=== PATIENT | male | born 1940 | race Caucasian/White ===

== ENCOUNTER → 2017-01-27 | Outpatient (CLI) | payer MEDICARE ==
[~2017-01-27] MED LIST: CHILDREN'S ASPI81 MG PO; ISOSORBIDE DINI30 MG PO; LEVAQUIN500 MG PO; METOPROLOL TART50 MG PO; OMEPRAZOLE20 M1 PO; PLAVIX 75 MG TA75 MG PO; PRAVACHOL40 MG PO; PULMICORT0.5 MG/21 INH; SPIRIVA RESPIMAT4 GM INH; TYLENOL W/CODEIN1 E1 PO; ZESTRIL5 MG PO
== END ==
LOC: HEART 5 10:46
DX: I25.5 Ischemic cardiomyopathy (principal); I49.3 Ventricular premature depolarization
CPT/HCPCS: 93306

== ENCOUNTER → 2020-09-16 | Day surgery (SDC) | payer MEDICARE ==
[~2020-09-16] MED LIST changes: +BACTRIM DS TAB1 EACH PO; +CIPRO500 MG PO; +ELIQUIS5 MG PO; +FLAGYL500 MG PO; +HYDROCODON-ACE1 EAC4 PO; +ISOSORBIDE MONO30 MG PO; +LANTUS SOL100 UNIT/1 SQ; +METFORMIN HCL500 M2 PO; +NITROSTAT0.4 MG SL; +PREDNISONE 20 M20 MG PO; +PROTONIX40 MG PO; +TOPROL XL25 MG PO; +TRELEGY ELLIPT1 EACH INH; +URSODIOL300 MG PO
== END | disposition home or self-care (01) ==
LOC: OR 07:27
DX: Z12.11 Encounter for screening for malignant neoplasm of colon (principal); D12.3 Benign neoplasm of transverse colon; K63.5 Polyp of colon; K57.30 Diverticulosis of large intestine without perforation or abscess without bleeding; K57.32 Diverticulitis of large intestine without perforation or abscess without bleeding; K64.0 First degree hemorrhoids; K64.1 Second degree hemorrhoids; C25.9 Malignant neoplasm of pancreas, unspecified; I10 Essential (primary) hypertension; J44.9 Chronic obstructive pulmonary disease, unspecified; R94.8 Abnormal results of function studies of other organs and systems; E78.00 Pure hypercholesterolemia, unspecified; E11.9 Type 2 diabetes mellitus without complications; K21.9 Gastro-esophageal reflux disease without esophagitis; I49.5 Sick sinus syndrome; E78.5 Hyperlipidemia, unspecified; I25.10 Atherosclerotic heart disease of native coronary artery without angina pectoris; I48.91 Unspecified atrial fibrillation; I25.2 Old myocardial infarction; E66.3 Overweight; Z68.25 Body mass index [BMI] 25.0-25.9, adult; Z95.0 Presence of cardiac pacemaker; Z87.891 Personal history of nicotine dependence; Z88.1 Allergy status to other antibiotic agents; Z88.0 Allergy status to penicillin; Z86.16 Personal history of COVID-19; Z86.711 Personal history of pulmonary embolism; Z79.01 Long term (current) use of anticoagulants; Z85.828 Personal history of other malignant neoplasm of skin; Z98.890 Other specified postprocedural states; Z79.4 Long term (current) use of insulin; Z95.5 Presence of coronary angioplasty implant and graft; Z79.2 Long term (current) use of antibiotics; Z79.899 Other long term (current) drug therapy; Z79.52 Long term (current) use of systemic steroids
CPT/HCPCS: 82962; J2704; J7040

== ENCOUNTER → 2020-10-06 | Day surgery (SDC) | payer MEDICARE | END | disposition home or self-care (01) | LOC: OR 06:23 | DX: Z45.2 Encounter for adjustment and management of vascular access device (principal); C25.9 Malignant neoplasm of pancreas, unspecified; I25.119 Atherosclerotic heart disease of native coronary artery with unspecified angina pectoris; I11.0 Hypertensive heart disease with heart failure; I50.22 Chronic systolic (congestive) heart failure; E78.5 Hyperlipidemia, unspecified; I25.2 Old myocardial infarction; I25.5 Ischemic cardiomyopathy; I73.9 Peripheral vascular disease, unspecified; J43.9 Emphysema, unspecified; Z98.61 Coronary angioplasty status; Z87.891 Personal history of nicotine dependence; Z88.1 Allergy status to other antibiotic agents; Z79.82 Long term (current) use of aspirin; Z79.899 Other long term (current) drug therapy; Z82.49 Family history of ischemic heart disease and other diseases of the circulatory system; Z80.9 Family history of malignant neoplasm, unspecified; Z20.822 Contact with and (suspected) exposure to COVID-19 | CPT/HCPCS: 71045; 77001; 82962; C1769; C1788; J1642; J2001; J2405; J2704; J3010; J7040; J7120 ==

== ENCOUNTER → 2021-03-13 | Outpatient (CLI) | payer MEDICARE | LOC: CT 10:00 | DX: C25.0 Malignant neoplasm of head of pancreas (principal); K86.89 Other specified diseases of pancreas; R30.0 Dysuria; Z79.899 Other long term (current) drug therapy | CPT/HCPCS: Q9967 ==

== ENCOUNTER → 2021-04-06 | Outpatient (CLI) | payer MEDICARE | LOC: CT 09:30 | DX: C25.0 Malignant neoplasm of head of pancreas (principal) | CPT/HCPCS: 70470; Q9967 ==

== ENCOUNTER → 2021-07-14 | Outpatient (CLI) | payer MEDICARE | LOC: CT 10:16 | DX: C25.0 Malignant neoplasm of head of pancreas (principal); K86.89 Other specified diseases of pancreas; R30.0 Dysuria; Z79.899 Other long term (current) drug therapy | CPT/HCPCS: Q9967 ==

== ENCOUNTER → 2021-10-12 | Outpatient (CLI) | payer MEDICARE ==
[2021-10-12 12:59] LABS: HEMOGLOBIN 12.4 gm/dl (14.0-17.5); RED BLOOD COUNT 4.24 M/UL (4.20-5.50); WHITE BLOOD COUNT 8.8 K/UL (4.5-11.0)
[2021-10-12 13:30] LABS: BUN/CREATININE RATIO 25 (0-10)
== END ==
LOC: CT 12:16
PROVIDERS: Internal Medicine Hematology & Oncology
DX: K86.89 Other specified diseases of pancreas (principal); C25.0 Malignant neoplasm of head of pancreas; R30.0 Dysuria; Z79.899 Other long term (current) drug therapy
CPT/HCPCS: 36415; 71260; 80053; 85027; 86301; Q9965

== ENCOUNTER 2021-11-18 10:04 | Emergency (ER) | payer MEDICARE | END 2021-11-18 13:45 | disposition home or self-care (01) | LOC: ER1 10:04 | DX: S09.90XA Unspecified injury of head, initial encounter (principal); M25.552 Pain in left hip; I48.91 Unspecified atrial fibrillation; J44.9 Chronic obstructive pulmonary disease, unspecified; E11.9 Type 2 diabetes mellitus without complications; W01.0XXA Fall on same level from slipping, tripping and stumbling without subsequent striking against object, initial encounter | CPT/HCPCS: 70450; 73502; 73700; 99284 ==

== ENCOUNTER 2021-12-10 12:27 | Inpatient (IN) | payer MEDICARE ==
[~2021-12-10] VITALS: Ht 188 cm; Wt 90.1 kg
[~2021-12-10 12:27] MED LIST changes: -URSODIOL300 MG PO
[2021-12-10 13:28] LABS: HEMOGLOBIN 10.8 gm/dl (14.0-17.5); RED BLOOD COUNT 3.66 M/UL (4.20-5.50); WHITE BLOOD COUNT 7.9 K/UL (4.5-11.0)
[2021-12-10 14:38] LABS: BUN/CREATININE RATIO 25 (0-10)
[2021-12-10] MEDS ORDERED: VITAMIN C500 M4 PO (19:18)
[2021-12-10] MEDS ORDERED: IRON325 M1 PO (19:26)
[2021-12-10] MEDS ORDERED: LASIX80 MG PO (19:27)
[2021-12-10] MEDS ORDERED: SERTRALINE HCL50 MG PO (19:27)
[2021-12-10] MEDS ORDERED: SOTALOL AF120 MG PO (19:29)
[2021-12-10] MEDS ORDERED: TRELEGY (19:30)
[2021-12-10] MEDS ORDERED: HUMALOG100 UNIT/1 SC (19:31)
[2021-12-10 19:32] LABS: ADENOVIRUS F 40/41 Not Detected (Negative); ASTROVIRUS Not Detected (Negative); CAMPYLOBACTER Not Detected (Negative); CRYPTOSPORIDIUM Not Detected (Negative); E.COLI 0157 Not Detected (Negative); ENTAMOEBA HISTOLYTICA Not Detected (Negative); ENTEROAGGREGATIVE E.COLI (EAEC Not Detected (Negative); ENTEROPATHOGENIC E.COLI (EPEC) Not Detected (Negative); ENTEROTOXIGENIC E.COLI (ETEC) Not Detected (Negative); GIARDIA LAMBLIA Not Detected (Negative); NOROVIRUS GI/GII Not Detected (Negative); PLESIOMONAS SHIGELLOIDES Not Detected (Negative); ROTOVIRUS A Not Detected (Negative); SALMONELLA Not Detected (Negative); SAPOVIRUS Not Detected (Negative); SHIG/ENTEROINVAS.ECOLI (EIEC) Not Detected (Negative); SHIGA-LIK TOX.PRO.E.COLI (STEC Not Detected (Negative); VIBRIO Not Detected (Negative); VIBRIO CHOLERAE Not Detected (Negative); YERSINIA ENTEROCOLITICA Not Detected (Negative)
[2021-12-10] MEDS ORDERED: LANTUS100 UNIT/1 SQ (19:32)
[2021-12-11 04:51] LABS: HEMOGLOBIN 10.6 gm/dl (14.0-17.5); RED BLOOD COUNT 3.68 M/UL (4.20-5.50)
[2021-12-11 04:59] LABS: BUN/CREATININE RATIO 20 (0-10)
--- NOTE | 2021-12-11 07:12 | NUR ---
DAUGHTER STATES PT IS NOT ALLERGIC TO SOTALOL. NOTIFIED PHARMACIST.
[2021-12-11] MEDS ORDERED: TRELEGY ELLIPT1 EAC1 INH (07:30)
[2021-12-11] MEDS ORDERED: ACTIGALL 300MG300 MG PO (07:33)
[2021-12-11] MEDS ORDERED: URSODIOL300 MG PO (09:11)
[2021-12-11] MEDS ORDERED: CIPRO250 MG PO (09:19)
[2021-12-11] MEDS ORDERED: DRONABINOL2.5 MG PO (09:20)
[2021-12-11] MEDS ORDERED: PERCOCET 7.5-31 EACH PO (09:20)
[2021-12-11] MEDS ORDERED: VITAMIN D250 MCG PO (09:28)
[2021-12-11] MEDS ORDERED: MEGACE 400400 MG/10 PO (19:29)
[2021-12-12 04:47] LABS: BUN/CREATININE RATIO 19 (0-10)
[2021-12-13 05:10] LABS: HEMOGLOBIN 10.4 gm/dl (14.0-17.5); RED BLOOD COUNT 3.54 M/UL (4.20-5.50); WHITE BLOOD COUNT 7.8 K/UL (4.5-11.0)
[2021-12-13 06:39] LABS: BUN/CREATININE RATIO 20 (0-10)
[2021-12-14 05:13] LABS: HEMOGLOBIN 10.3 gm/dl (14.0-17.5); RED BLOOD COUNT 3.53 M/UL (4.20-5.50); WHITE BLOOD COUNT 9.5 K/UL (4.5-11.0)
[2021-12-14 05:42] LABS: BUN/CREATININE RATIO 18 (0-10)
[2021-12-15 03:13] LABS: HEMOGLOBIN 10.7 gm/dl (14.0-17.5); RED BLOOD COUNT 3.67 M/UL (4.20-5.50); WHITE BLOOD COUNT 8.1 K/UL (4.5-11.0)
[2021-12-15 04:00] LABS: BUN/CREATININE RATIO 22 (0-10)
[2021-12-15] MEDS ORDERED: FENTANYL1 EAC4 TD (11:09)
--- NOTE | 2021-12-15 11:42 | NUR ---
PT SWABBED FOR COVID A/O AND SENT TO LAB
--- NOTE | 2021-12-15 16:11 | NUR ---
REPORT CALLED TO CYCLE ANALYST
== END 2021-12-15 16:10 | DRG 640 ==
LOC: ER1 12:27 → CCU 16:46 → CDU 16:46 → CCU 20:50 → PROG CARE 12-14 22:50
PROVIDERS: Internal Medicine; Physician Assistant; ADMIT Internal Medicine
PROC: 3E033XZ Introduction of Vasopressor into Peripheral Vein, Percutaneous Approach (ICD-10-PCS; principal; 2021-12-10)
PROC: 3E03329 Introduction of Other Anti-infective into Peripheral Vein, Percutaneous Approach (ICD-10-PCS; 2021-12-10)
DX: E86.0 Dehydration (principal); R57.1 Hypovolemic shock; C25.9 Malignant neoplasm of pancreas, unspecified; I50.22 Chronic systolic (congestive) heart failure; E44.1 Mild protein-calorie malnutrition; Z68.1 Body mass index [BMI] 19.9 or less, adult; M84.559A Pathological fracture in neoplastic disease, hip, unspecified, initial encounter for fracture; E11.65 Type 2 diabetes mellitus with hyperglycemia; J44.9 Chronic obstructive pulmonary disease, unspecified; I25.10 Atherosclerotic heart disease of native coronary artery without angina pectoris; I11.0 Hypertensive heart disease with heart failure; M25.552 Pain in left hip; Z66 Do not resuscitate; E86.9 Volume depletion, unspecified; E11.649 Type 2 diabetes mellitus with hypoglycemia without coma; I25.5 Ischemic cardiomyopathy; E87.6 Hypokalemia; Z92.21 Personal history of antineoplastic chemotherapy; Z95.810 Presence of automatic (implantable) cardiac defibrillator; Z95.1 Presence of aortocoronary bypass graft; Z85.828 Personal history of other malignant neoplasm of skin; Z92.0 Personal history of contraception; Z86.16 Personal history of COVID-19; Z87.891 Personal history of nicotine dependence; Z79.4 Long term (current) use of insulin; Z91.81 History of falling; Z95.828 Presence of other vascular implants and grafts; Z88.0 Allergy status to penicillin; Z88.8 Allergy status to other drugs, medicaments and biological substances; Z79.899 Other long term (current) drug therapy; Z51.5 Encounter for palliative care
CPT/HCPCS: 36415; 36600; 70450; 71045; 72192; 73502; 76705; 80048; 80053; 81001; 82550; 82553; 82803; 83036; 83605; 83690; 83735; 83880; 84132; 84484; 85025; 85027; 87040; 87086; 87507; 93005; 94640; 94664; 94760; 99285; J3475; J7030; U0002